=== PATIENT | female | born 1935 | race Caucasian/White ===

== ENCOUNTER 2019-05-02 09:02 | Day surgery (SDC) | payer MEDICARE ==
[2019-04-29 11:25] LABS: CHLORIDE 108 mmol/L (98-107)
[2019-04-29 11:32] LABS: ALANINE AMINOTRANSFERASE 22 U/L (12-78); ALBUMIN 3.5 g/dL (3.4-5.0); ALKALINE PHOSPHATASE 94 U/L (45-117); ANION GAP 4 mmol/L (5-15); BILIRUBIN,TOTAL 0.7 mg/dL (0.2-1.0); CALCIUM 9.1 mg/dL (8.5-10.1); CREATININE 1.09 mg/dL (0.55-1.02); TOTAL PROTEIN 7.7 g/dL (6.4-8.2)
[~2019-05-02] VITALS: Ht 157.5 cm; Wt 94.9 kg
[~2019-05-02 09:02] MED LIST: ASPI-496 PO; BUPIVACAINE/PF 0.5% ONE; ISOSULFAN BLUE 10 MG/ML, 5ML IV ONE; amiodarone PO; atorvastatin PO; eliquis PO; levothyroxine PO; lisinopril PO; metoprolol PO
[2019-05-02 09:29] VITALS: BP 144/86
[2019-05-02] MEDS ORDERED: LACTATED RINGERS 1,000 ML IV SCH (10:09)
[2019-05-02] MEDS ORDERED: FENTANYL PF 250 MCG/5ML ONE (11:08)
[2019-05-02] MEDS ORDERED: PROPOFOL 50 ML ONE (11:08)
[2019-05-02] MEDS ORDERED: MIDAZOLAM 1 MG/ML, 2ML ONE (11:24)
[2019-05-02] MEDS ORDERED: CEFAZOLIN 1,000 MG ONE (11:25)
[2019-05-02] MEDS ORDERED: EPINEPHRINE 1 MG/ML, 1ML INFIL ONE (11:40)
[2019-05-02] MEDS ORDERED: EPHEDRINE 50 MG/ML, 1ML IM PRN (12:00)
[2019-05-02] MEDS ORDERED: MIDAZOLAM 1 MG/ML, 2ML IV PRN (12:00)
[2019-05-02] MEDS ORDERED: DIPHENHYDRAMINE 50 MG/ML, 1ML IVPush PRN (12:00)
[2019-05-02] MEDS ORDERED: ONDANSETRON ODT 8 MG PO PRN (12:00)
[2019-05-02] MEDS ORDERED: ONDANSETRON 2MG/ML, 2ML IV PRN (12:00)
[2019-05-02] MEDS ORDERED: OXYcodone 5 MG/5 ML ORAL.SOL UDC PO PRN (12:00)
[2019-05-02] MEDS ORDERED: FENTANYL PF 100 MCG/2ML IV PRN (12:00)
[2019-05-02] MEDS ORDERED: ACETAMINOPHEN 325 MG TABLET PO PRN (12:00)
[2019-05-02] MEDS ORDERED: PROMETHAZINE 25 MG/ML, 1ML IV PRN (12:00)
[2019-05-02] MEDS ORDERED: DIAZEPAM 5 MG/ML, 2ML IVPush PRN (12:00)
[2019-05-02] MEDS ORDERED: EPHEDRINE 50 MG/ML, 1ML IVPush PRN (12:00)
[2019-05-02] MEDS ORDERED: HYDROmorphone 2 MG/ML, 1ML IVPush PRN (12:00)
[2019-05-02] MEDS ORDERED: DEXAMETHASONE 4 MG/ML, 1ML ONE (12:15)
[2019-05-02] MEDS ORDERED: PROPOFOL 10 MG/ML, 20ML ONE (12:15)
[2019-05-02] MEDS ORDERED: ONDANSETRON 2MG/ML, 2ML ONE (12:15)
[2019-05-02] MEDS ORDERED: ACETAMINOPHEN 650 MG/20.3 ML UDC ONE (13:06)
[2019-05-02] MEDS ORDERED: OXYcodone 5 MG/5 ML ORAL.SOL UDC ONE (13:07)
== END 2019-05-02 14:55 | disposition home or self-care (01) ==
LOC: OUT 09:02 → EDSTATUS 10:30 → OUT 14:55
PROVIDERS: ATTEND Surgery
DX: C50.511 Malignant neoplasm of lower-outer quadrant of right female breast (principal); I10 Essential (primary) hypertension; E03.9 Hypothyroidism, unspecified; Z17.0 Estrogen receptor positive status [ER+]; Z79.01 Long term (current) use of anticoagulants; Z79.890 Hormone replacement therapy; Z79.899 Other long term (current) drug therapy; Z91.041 Radiographic dye allergy status; Z95.1 Presence of aortocoronary bypass graft; Z80.3 Family history of malignant neoplasm of breast; Z82.49 Family history of ischemic heart disease and other diseases of the circulatory system
CPT/HCPCS: 19303; 36415; 38525; 38792; 80053; 88307; 88333; 93005; A9541; J0171; J0690; J1100; J2250; J2405; J2704; J3010; J7120